=== PATIENT | male | born 1950 | race Caucasian/White ===

== ENCOUNTER 2019-11-10 07:30 | Outpatient (RCR) | payer MEDICARE, OTHER, SELFPAY ==
--- NOTE | 2019-09-28 08:53 | HP.PTEVAL_ITS ---
Patient's Visit Information NAGA LARSON is a 69 year old M referred to Physical Therapy by Juan Ramon Evans MD with a diagnosis of Distal Bicep Femoris Pain. Date of Evaluation: 09/28/19 Physical Therapist: Rocio Valenzuela DPT - Visit Plan Frequency: 2x /Week Duration: 4 Weeks Plan: Focus on LE and core strength/stabilization with focus on eccentric squats, hamstrings and progression to HEP in gym at [facility]. 09/28: HEP: Bridge, Hamstring Stretch seated, Clams with orange TBand, SLS without hip drop - Subjective Findings: Left hamstring pain. Patient experienced an injury jogging. Last year and a half has gotten back into running. He was at the [facility] and was working on speed and is unsure if thats what is causing the pain. Always warms up by walking and then jogging. Tried to run some straight aways (17 of September) and then started having pain. He also introduced machines- hip abduction. Next day had soreness so he rested- and tried to get back in slowly but continued to have pain. He does not have any discomfort sitting. Went to see the MD last week. Pain is located on the tendon down by the knee. Describes the pain as there. He has not been using it so he is unsure of when the last time he had pain was. He has chronic regional pain syndrome on the left LE so he ignores pain a lot. On the he took a walk outside and he felt a little bit of discomfort. Running pattern varies- about 15-20 miles a week. Normally runs on the road. 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 No pain that radiates- No N/T in the area. Goal: to get back into running without pain. Does not do any strength training- also swims laps. Sleep not disturbed. PMhx: Torn achilles then went into Chronic Regional Pain Syndrome- 2001. Meds: Ibuprofen as needed - Objective Posture: FH, RS- can correct but does not maintain. Gait: walking: no deviation noted. Running: decrease stride length, decreased arm swing on the right and hunches to the right- reports no pain in clinic. HR/TR walking: WFL. SLS: 30 sec with increased muscle activation and hip sway. Squat: poor mechanics- increased him flexion, decreased depth. Palpation: tender along muscle belly of lateral hamstrings. ROM: WFL in all planes. Strength: Core: poor, Hip: 4/5 throughout, Knee: 5/5, Ankle: 5/5, Eccentric Hamstring: able to do #14 but very challenged. Flex: HS: severe, Gastroc: moderate, Quad: severe. Special Test: LLD: negative, Pelvis Alignment: WFL - Goals Goal 1:: Patient will be I with HEP and progression Goal Time Frame: 4-6 Weeks Goal 2:: Patient will maintain proper posture t/o tx session to demo increased core s/s. Goal Time Frame: 4-6 Weeks Goal 3:: Patient will squat with normal mechanics Goal Time Frame: 4-6 Weeks Goal 4:: Patient will return to running without pain Goal Time Frame: 4-6 Weeks - Rehabilitation Potential Physical Therapy Diagnosis: Patient presents with hypomobility- he has decreased strength, flexibility and muscular endurance leading to poor posture and increased pain with recreational activities. Rehabilitation Potential: Good - Anticipated Interventions Therapeutic Exercise to Include: Strength training, Endurance training, Balance training, Agility training, Body mechanics, Postural training, Flexibilty t raining, Gait and locomotor training, Passive ROM, Active ROM, Dynamic Lumbar Stabilization, Scapular Strength/Stabilization For the Purpose of:: To improve muscle performance and motor function Thank you for the opportunity to evaluate your patient. For Medicare and Medicare HMO plans, please review the plan of care and approve it. It will need to be FAXED BACK to us at [phone] for Medicare purposes. For Medicare only, by signing this I certify the plan of care. Please let me know if there are questions or concerns regarding this plan of care. Physician Signature: Date:
--- NOTE | 2020-02-23 11:01 | HP.PTDCSUM_ITS ---
It has been my pleasure to treat NAGA LARSON referred by Dr. Juan Ramon Evans MD, with the diagnosis of Distal Bicep Femoris Pain for a total of 9 visit(s). Discharge Date: Please see the following information for a summary of their discharge status. Subjective: Patient reports that the leg is pretty good- he has been swimming instead of running and he feels that it has worked his leg in a different way. Has not had the discomfort that brought him in here. He has muscle soreness from moving- light jogging. left foot Pain Intensity (Out of 10): 0 % Improvement: 100 Objective/Function: Posture: good throughout. Gait: walking: no deviation noted. Running: decrease stride length, decreased arm swing on the right and hunches to the right- reports no pain in clinic. HR/TR walking: WFL. SLS: 30 sec with decreased muscle activation and hip sway- able to engage glut mu sculature. Squat: fair mechanics- increased him flexion, decreased depth. Palpation: not tender. ROM: WFL in all planes. Strength: Core: fair, Hip: 5/5 throughout, Knee: 5/5, Ankle: 5/5, Flex: HS: mod, Gastroc: moderate, Quad: mod. Special Test: LLD: negative, Pelvis Alignment: WFL Goal 1:: Patient will be I with HEP and progression Goal Progress: Goal Met Goal 2:: Patient will maintain proper posture t/o tx session to demo increased core s/s. Goal Progress: Progressing Goal 3:: Patient will squat with normal mechanics Goal Progress: Progressing Goal 4:: Patient will return to running without pain Goal Progress: Goal Met Plan: Discharge to [facility] If there are questions or concerns regarding this patient's physical therapy, please feel free to call me at [phone]. Thank you for the referral of this patient. Sincerely, Rocio Valenzuela DPT
== END 2019-11-10 19:00 | disposition home or self-care (01) ==
LOC: PT 07:30
PROVIDERS: Family Provider Family Medicine; PCP Family Medicine; Referring Provider Family Medicine; Visit Provider Family Medicine
DX: S46.212D Strain of muscle, fascia and tendon of other parts of biceps, left arm, subsequent encounter (principal)
CPT/HCPCS: 97110; 97161; 97164

== ENCOUNTER → 2020-03-15 15:47 | Outpatient (CLI) | payer MEDICARE, OTHER, SELFPAY ==
[2016-09-24 12:46] VITALS: BMI 25.3
[2020-03-15 15:59] LABS: Lyme Ab Screen Interpretation REF LAB
[2020-03-15 17:52] LABS: Absolute Lymphocyte Count 1.37 X10^3/uL (0.83-4.51); Absolute Neutrophil Count 2.9 X10^3/uL (2.0-7.7); Basophil# 0.03 X10^3/uL; Basophil% 0.6 % (0-1); Eosinophil# 0.17 X10^3/uL; Eosinophils% 3.5 % (0-5); Hematocrit 43.8 % (40-54); Hemoglobin 14.2 g/dL (13.0-16.5); Lymphocyte # 1.37 X10^3/ul (4.0); Lymphocyte % 28.1 % (19-41); Mean Corp Hgb Conc 32.4 g/dL (32-36); Mean Corpuscular Hgb 31.6 pg (27.0-32.0); Mean Corpuscular Volume 97.3 fL (80-94); Mean Platelet Vol. 10.2 fl (6.2-12.0); Monocyte# 0.41 X10^3/uL; Monocyte% 8.4 % (0-10); NRBC Flagged by Analyzer 0 % (0-5); Neutrophil # 2.87 X10^3/uL (2.7-7.7); Platelet Count 239 K/mm3 (150-450); RBC Distribution Width SD 43.2 fl (35.1-43.9); White Blood Count 4.9 K/mm3 (4.4-11.0)
[2020-03-15 18:23] LABS: ALB/GLOB Ratio 0.9 RATIO (0.9-2.4); AST(SGOT) 22 U/L (15-37); Alanine Aminotransfer ALT/SGPT 23 U/L (16-61); Albumin, Serum 3.8 g/dL (3.2-5.0); Alkaline Phosphatase 68 U/L (45-117); Anion Gap 6 (5-15); BUN 22 mg/dL (7-18); BUN/Creat Ratio 19.5 RATIO (10-20); Calcium,Total 9.3 mg/dL (8.5-10.1); Chloride 104 mmol/L (98-107); Cholesterol 195 mg/dL (200); Creatinine, Serum 1.13 mg/dL (0.70-1.30); EST Glomerular Filtration Rate 69 mL/min (>60); Est Glom Filt Rate - Afr Amer 83 mL/min (>60); Globulin 4.3 g/dL (2.2-4.2); Glucose 96 mg/dL (74-106); High Density Lipoprotein 48 mg/dL; Potassium 4.1 mmol/L (3.5-5.1); Protein, Total 8.1 g/dL (6.4-8.2); Sodium Level 141 mmol/L (136-145); Thyroid Stim Hormone (TSH) 3.63 uIU/mL (0.358-3.74); Triglycerides 122 mg/dL; Very Low Density Lipoprotein 24 mg/dL (5-40)
[2020-03-16 11:25] LABS: Hepatitis C Antibody Non-Reactive (Nonreactive); Vitamin B12 480 pg/mL (211-911)
[2020-03-17 00:55] LABS: Rapid Plasmin Reagin (RPR) NONREACTIVE (NONREACTIVE)
[2020-03-18 13:15] LABS: Lyme Scn Total Ab w/Rflx <0.91 ISR (0.00-0.90)
== END ==
PROVIDERS: PCP Family Medicine; Referring Provider Family Medicine; Visit Provider Family Medicine
DX: Z11.59 Encounter for screening for other viral diseases (principal); G90.529 Complex regional pain syndrome I of unspecified lower limb; R41.89 Other symptoms and signs involving cognitive functions and awareness; Z12.5 Encounter for screening for malignant neoplasm of prostate; Z13.220 Encounter for screening for lipoid disorders; Z79.899 Other long term (current) drug therapy
CPT/HCPCS: 36415; 80053; 80061; 82607; 82746; 84153; 84443; 85025; 86592; 86618; 86803; G0103

== ENCOUNTER 2021-03-15 08:30 | Outpatient (RCR) | payer MEDICARE, OTHER, SELFPAY ==
--- NOTE | 2021-02-10 13:01 | HP.PTEVAL_ITS ---
Patient's Visit Information NAGA LARSON is a 70 year old M referred to Physical Therapy by Dr. Juan Ramon Evans MD with a diagnosis of R SHLD PAIN (PROBABLE TERES STRAIN) W/REFERRED PAIN AND C/O WEAKNESS. Date of Evaluation: 02/10/21 Physical Therapist: Kathrine Cho, PT, Cert MDT - Visit Plan Frequency: 2x /Week Duration: 4-6 Weeks Plan: US. POSTURE CORRECTION/STRENGTHENING, INSTRUCTION IN APPROPRIATE BODY MECHANICS AND ACTIVITY MODIFICATIONS. MIHAELA UE ROM, STRETCHING AND STRENGTHENING. HEP INSTRUCTION. - Subjective Work/Leisure: RETIRED. RUNNING, CYCLING, SWIMMING, TENNIS. Disability: NO. Present symptoms: RIGHT SHOULDER, UPPER ARM AND ELBOW PAIN. NO NUMBNESS OR TINGLING. IT JUST DOESN'T FEEL RIGHT IN THE SHOULDER. SOMETIMES TWINGES OF PAIN IN THE SHOULDER AND SOMETIMES MAKES A CRUNCHING SOUND. NO NECK PAIN. Present since: ABOUT 6 WEEKS AGO. Pain Scale: Worst - 6/10, SOMETIMES 8/10 Least - 1/10. Currently: 10/23. PATIENT REPORTS IT IS NOT GETTING WORSE. STATES IT GETS BETTER UNTIL HE GOES OUT AND PLAYS AGAIN THEN IT GETS FLARED UP AGAIN. Commenced as a result of: AFTER PLAYING TENNIS FOR THE FIRST TIME THIS SEASON. DID NOT EASE INTO IT. PLAYED A LONG TIME. Symptoms at onset: RIGHT SHLD OR ELBOW SORENESS. Worse: HITTING THE TENNIS BALLS CERTAIN WAYS, TRYING TO OPEN A TIGHT JAR, PULLING AND LIFTING A SUITCASE, LIFTING GROCERIES, PENDULUM MOTION WITH RIGHT UE. TRYING TO STRETCH BEFORE SWIMMING, LYING ON R SIDE. PLAYING TENNIS. Better: HOLDING ELBOW WITH LEFT HAND. RESTING IT. RUBBING. Disturbed sleep: NO. Previous history/Previous treatment: UNREMARKABLE. This episode: NONE. Dizziness: NO. Tinnitis: NO. Nausea: NO. Shortness of Breath: NO. Difficulty Swollowing: NO. Accidents: NO. Unexplained weight loss: NO. Imaging: NO. PMH/Recent major surgery: ACHILLES TEAR L 2001. 3 HERNIAS REPAIRED. OTHER: WANTS TO BE ABLE TO PLAY TENNIS NEXT SATURDAY. HAS BEEN PLAYING LESS TENNIS TO HELP PROMOTE HEALING BUT HAS NOT STOPPED TENNIS. PATIENT REPORTS GENERALLY HE RUNS 3 TIMES A WEEK, SWIMS 3 TIMES A WEEK AND PLAYS TENNIS ONCE A WEEK BUT DECREASED SWIMMING TO 1 TIME A WEEK SINCE THE INJURY. INTERMITTENT BIKE RIDING. - Objective Sitting Posture/Standing Posture: POOR. DECREASED LORDOSIS. FH. RS'S. Active Correction of posture: NE BUT ONLY ABLE TO PARTIALLY CORRECT. Other Observations: INDEP GAIT AND TRANSFERS. 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 MIHAELA UE STRENGTH 5/5 WITH MMT'ING. Sensory deficit: MIHAELA UE LIGHT TOUCH SENSATION IS INTACT AND SYMMETRICAL. ROM deficit: SUPINE PASSIVE SHLD FLEX - L 157 DEG, R 151 DEG. L SHLD IR/ER WFL. R SHLD IR/ER 25 DEG/FULL. OTHERWISE MIHAELA UE ROM IS WFL. Reflexes: MIHAELA UE'S NORMAL. Dural Signs: NEGATIVE MIHAELA UE'S. Cervical Mvmt Loss: Flex: NIL. Pro: NIL. Ext: MIN. Ret: MOD TO MARCIA. RSB: MOD. LSB: MOD. R Rot: MOD. L Rot: MOD. CERVICAL ROM TESTING HAS NO EFFECT ON R UE SX'S. Postural strength: FAIR. TREATMENT: NEUROMUSCULAR REEDUCATION - MODIFICATIONS OF MVMT AND POSTURE FOR SITTING, LYING AND STANDING ACTIVITIES. - Goals Goal 1:: DECREASE C/O RIGHT SHOULDER AND ELBOW PAIN Goal Time Frame: 4-6 Weeks Goal 2:: IMPROVE MIHAELA UE AND POSTURAL FUNCTIONAL STRENGTH Goal Time Frame: 4-6 Weeks Goal 3:: IMPROVE MIHAELA UE AND POSTURAL FUNCTIONAL ROM Goal Time Frame: 4-6 Weeks Goal 4:: PATIENT WILL BE INDEP WITH A HEP FOR CONTINUED IMPROVEMENT ONCE FORMAL PHYSICAL THERPAY CONCLUDES. Goal Time Frame: 4-6 Weeks - Anticipated Interventions Patient/Client Instruction: Educate patient on: Condition, Plan of Care, Risk Factors For the Purpose of:: To improve self management Therapeutic Exercise to Include: Strength training, Body mechanics, Postural training, Flexibilty training, Neuromotor development, Active ROM, Scapular Strength/Stabilization For the Purpose of:: To decrease pain, To increase ROM, To improve muscle performance and motor function, To increase tolerance to activity/condition/position, To improve ability of physical actions for home/community/work/leisure Cryotherapy (ice pack, ice massage): Yes Thermo therapy (hot pack): Yes Ultrasound (thermal/non thermal): Yes For the Purpose of:: To decrease pain, To improve nutrient delivery to tissue Thank you for the opportunity to evaluate your patient. For Medicare and Medicare HMO plans, please review the plan of care and approve it. It will need to be FAXED BACK to us at [phone] for Medicare purposes. For Medicare only, by signing this I certify the plan of care. Please let me know if there are questions or concerns regarding this plan of care. Physician Signature: Date:
--- NOTE | 2021-03-15 09:01 | HP.PTDCSUM ---
It has been my pleasure to treat NAGA LARSON referred by Dr. Juan Ramon Evans MD, with the diagnosis of R SHLD PAIN (PROBABLE TERES STRAIN) W/REFERRED PAIN AND C/O WEAKNESS for a total of 9 visit(s). Discharge Date: Please see the following information for a summary of their discharge status. Subjective: PATIENT REPORTS HIS SHOULDER IS DOING MUCH BETTER. HAS BEEN LIFTING A LOT WITH MOVING BUT THAT IS DONE NOW. HAS NOT BEEN PLAYING TENNIS OR SWIMMING. STATES HE JUST HASN'T HAD TIME. PATIENT REPORTS HE FEELS READY TO PROCEED SLOWLY WITH HIS HEP AND WILL SLOWLY RETURN TO SWIMMING AND TENNIS. % Improvement: 80 Objective/Function: PATIENT WAS SEEN TODAY FOR RE-ASSESSMENT OF PROGRESS TOWARD THE SET PT GOALS AND THE NEED FOR FURTHER PHYSICAL THERAPY VS READINESS FOR DISCHARGE. PATIENT IS MAKING GOOD PROGRESS TOWARD ALL PT GOALS AND IS APPROPRIATE FOR DISCHARGE TO HEP AND FOLLOW UP WITH DR. EVANS NEEDED. UPON EXAM TODAY: ROM deficit: SUPINE PASSIVE SHLD FLEX - R 172 DEG, IR/ER 52 DEG/FULL. OTHERWISE MIHAELA UE ROM IS WFL. PROGRESSED HEP WITH R UE SLEEPER STRETCH FOR IR AND BEHIND THE BACK WAND IR STRETCH. Goal 1:: DECREASE C/O RIGHT SHOULDER AND ELBOW PAIN Goal Progress: Goal Met Goal 2:: IMPROVE MIHAELA UE AND POSTURAL FUNCTIONAL STRENGTH Goal Progress: Goal Met Goal 3:: IMPROVE MIHAELA UE AND POSTURAL FUNCTIONAL ROM Goal Progress: Goal Met Goal 4:: PATIENT WILL BE INDEP WITH A HEP FOR CONTINUED IMPROVEMENT ONCE FORMAL PHYSICAL THERPAY CONCLUDES. Goal Progress: Goal Met Plan: D/C TO HEP. PATIENT AGREEABLE. If there are questions or concerns regarding this patient's physical therapy, please feel free to call me at [phone]. Thank you for the referral of this patient. Sincerely, Kathrine Cho, PT, Cert MDT
== END 2021-03-15 19:00 | disposition home or self-care (01) ==
LOC: PT 08:30
PROVIDERS: PCP Family Medicine; Referring Provider Family Medicine; Visit Provider Family Medicine
DX: M25.511 Pain in right shoulder (principal)
CPT/HCPCS: 97035; 97110; 97112; 97162; 97164

== ENCOUNTER → 2024-01-23 | Outpatient (CLI) | payer MEDICARE, OTHER, SELFPAY ==
[2024-01-23 15:28] LABS: Absolute Lymphocyte Count 0.82 X10^3/uL (0.83-4.51); Absolute Neutrophil Count 3.3 X10^3/uL (2.0-7.7); Basophil# 0.03 X10^3/uL; Basophil% 0.6 % (0-1); Eosinophil# 0.09 X10^3/uL; Eosinophils% 1.9 % (0-5); Hematocrit 40.5 % (40-54); Hemoglobin 13.1 g/dL (13.0-16.5); Lymphocyte # 0.82 X10^3/ul (0.83-4.51); Lymphocyte % 17.6 % (19-41); Mean Corp Hgb Conc 32.3 g/dL (32-36); Mean Corpuscular Volume 92.7 fL (80-94); Monocyte# 0.37 X10^3/uL; NRBC Flagged by Analyzer 0 % (0-5); Neutrophil # 3.32 X10^3/uL (2.7-7.7); Neutrophil % 71.5 % (47-70); Platelet Count 260 K/mm3 (150-450); RBC Distribution Width CV 13.4 % (11.6-14.6); RBC Distribution Width SD 45.5 fl (35.1-43.9); Red Blood Count 4.37 M/mm3 (4.6-6.2); White Blood Count 4.7 K/mm3 (4.4-11.0)
[2024-01-23 16:43] LABS: ALB/GLOB Ratio 0.9 RATIO (0.9-2.4); AST(SGOT) 25 U/L (15-37); Alanine Aminotransfer ALT/SGPT 24 U/L (16-61); Albumin, Serum 3.6 g/dL (3.2-5.0); Alkaline Phosphatase 68 U/L (45-117); Anion Gap 1 (5-15); BUN 17 mg/dL (7-18); BUN/Creat Ratio 17.2 RATIO (10-20); Calcium,Total 9.2 mg/dL (8.5-10.1); Chloride 108 mmol/L (98-107); Creatinine, Serum 0.99 mg/dL (0.70-1.30); EST Glomerular Filtration Rate 79 mL/min (>60); Est Glom Filt Rate - Afr Amer 96 mL/min (>60); Globulin 4.2 g/dL (2.2-4.2); Glucose 120 mg/dL (74-106); Potassium 4.1 mmol/L (3.5-5.1); Protein, Total 7.8 g/dL (6.4-8.2); Sodium Level 140 mmol/L (136-145)
== END | disposition home or self-care (01) ==
LOC: MFPLAB 11:52
PROVIDERS: PCP Family Medicine; Visit Provider Family Medicine
DX: R42 Dizziness and giddiness (principal)
CPT/HCPCS: 36415; 80053; 85025

== ENCOUNTER → 2025-08-23 | Outpatient (CLI) | payer MEDICARE, OTHER, SELFPAY ==
[2025-08-23 18:04] LABS: Hematocrit 39.5 % (40-54); Hemoglobin 13.3 g/dL (13.0-16.5); Immature Granulocytes Count 0.010 X10^3/uL (0.0-0.0); Mean Corp Hgb Conc 33.7 g/dL (32-36); Mean Corpuscular Volume 94.3 fL (80-94); Mean Platelet Vol. 10.1 fl (6.2-12.0); NRBC Flagged by Analyzer 0 % (0-5); Platelet Count 247 K/mm3 (150-450); RBC Distribution Width CV 12.4 % (11.6-14.6); RBC Distribution Width SD 42.8 fl (35.1-43.9); Red Blood Count 4.19 M/mm3 (4.6-6.2); White Blood Count 4.5 K/mm3 (4.4-11.0)
[2025-08-23 19:28] LABS: AST(SGOT) 24 U/L (<=37); Alanine Aminotransfer ALT/SGPT 13 U/L (<=46); Albumin, Serum 4.1 g/dL (3.4-4.8); Alkaline Phosphatase 67 U/L (40-129); Anion Gap 10 (5-15); BUN 19 mg/dL (4-19); BUN/Creat Ratio 19.2 RATIO (10-20); Calcium,Total 9.3 mg/dL (7.6-11.0); Carbon Dioxide 24.8 mmol/L (21.0-32.0); Chloride 107 mmol/L (98-108); Cholesterol 201 mg/dL (<=200); Globulin 3.2 g/dL (2.2-4.2); Glucose 66 mg/dL (70-99); Low Density Lipoprotein Calc. 132 mg/dL; PSA,Total - Annual Screen 1.98 ng/mL (0.02-4.00); Potassium 4.4 mmol/L (3.3-5.1); Triglycerides 113 mg/dL; Very Low Density Lipoprotein 23 mg/dL (5-40); cholesterol:hdl ratio screen 4.09
== END | disposition home or self-care (01) ==
PROVIDERS: PCP Family Medicine; Referring Provider Family Medicine; Visit Provider Family Medicine
DX: G90.529 Complex regional pain syndrome I of unspecified lower limb (principal); Z13.220 Encounter for screening for lipoid disorders; Z12.5 Encounter for screening for malignant neoplasm of prostate
CPT/HCPCS: 36415; 80053; 80061; 84153; 85025; G0103